=== PATIENT | male | born 1990 | race Caucasian/White ===

== ENCOUNTER 2018-06-07 13:28 | Emergency (ER) | payer OTHER, MEDICAID, SELFPAY ==
[2018-06-07 13:36] VITALS: BP 137/81; PULSE 66; RESP 18; TEMP 36.8; O2SAT 99
--- NOTE | 2018-06-07 13:45 | ED_ITS ---
HPI - Male Genitourinary <Shirin Denis PA-C - Last Filed: 06/07/18 21:35> General Chief complaint: Urogenital-Male Stated complaint: GROIN ISSUES Time Seen by Provider: 06/07/18 13:43 Source: patient Mode of arrival: ambulatory Limitations: no limitations History of Present Illness HPI Narrative: This healthy 28-year-old male complains of pain in both testicles radiating into the groin area, mostly on the right. He states he has had some intermittent discomfort maybe over the last year and noticed that the right will retract and he has to push it back down, however for the last couple of weeks he has had more pain and discomfort which wax and wane, will be present for a couple of days and then go away. He thinks the testicle could be a little bit swollen at times. He denies any fever or STD concerns. He denies any discharge or new urinary symptoms. He denies any nausea, vomiting, or bowel habit change. 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 he states that his s.o. bumped him in the groin accidentally last night and his puppy jumps on the area sometimes Related Data Previous Rx's Medication Instructions Recorded meloxicam [Mobic] 15 mg PO DAILY #30 tab 06/07/18 Allergies Allergy/AdvReac Type Severity Reaction Status Date / Time No Known Drug Allergies Allergy Verified 06/07/18 13:40 Review of Systems <Shirin Denis PA-C - Last Filed: 06/07/18 21:35> Review of Systems ROS Unobtainable: All systems reviewed & are unremarkable except as noted in HPI and below PFSH <Shirin Denis PA-C - Last Filed: 06/07/18 21:35> Medical History Healthy adult male (Chronic) Surgical History (Updated 06/07/18 @ 14:00 by Shirin Denis PA-C) S/P orchiopexy (Resolved) Comment: Daily smoker, occasional EtOH and occasional THC, no street drugs Exam <Shirin Denis PA-C - Last Filed: 06/07/18 21:35> Narrative Exam Narrative: GENERAL APPEARANCE: Patient sitting comfortably, in no distress. HEENT: PERRL, EOMI, no scleral icterus NECK: Supple LUNGS: Clear to auscultation bilaterally. HEART: Rate and rhythm regular, normal S1 and S2, no S3 or S4. ABDOMEN: Soft, nontender, nondistended, bowel sounds present x 4 quadrants, no masses palpable, no CVAT EXTREMITIES: No edema DERMATOLOGIC: No jaundice or exanthem NEUROLOGIC: Alert and oriented with normal speech and coordination : R. testicle is low riding compared to the left. Mildly tender, symmetric with the left. No palpable a normally. No palpable hernia. No palpable inguinal nodes Initial Vital Signs Initial Vital Signs: Vital Signs Temperature 98.3 F 06/07/18 13:36 Pulse Rate 66 06/07/18 13:36 Respiratory Rate 18 06/07/18 13:36 Blood Pressure 137/81 06/07/18 13:36 Pulse Oximetry 99 06/07/18 13:36 <DO Melissa Purcell Last Filed: 06/08/18 07:17> Initial Vital Signs Initial Vital Signs: Vital Signs Temperature 98.3 F 06/07/18 13:36 Pulse Rate 66 06/07/18 13:36 Respiratory Rate 18 06/07/18 13:36 Blood Pressure 137/81 06/07/18 13:36 Pulse Oximetry 99 06/07/18 13:36 Course <Shirin Denis PA-C - Last Filed: 06/07/18 21:35> Orders Ordered: ED Orders 06/07/18 13:54 US scrotum Stat 06/07/18 13:55 Urinalysis Sreen (Dip Only) Stat Urine Chlamydia Gonorrhea PCR Stat Vital Signs - 8 hr 06/07/18 13:36 06/07/18 14:43 06/07/18 15:00 Temperature 98.3 F Pulse Rate 66 67 87 Respiratory Rate 18 16 16 Blood Pressure 137/81 Blood Pressure [Left Arm] 131/60 122/61 Pulse Oximetry 99 100 100 06/07/18 16:17 Temperature Pulse Rate 81 Respiratory Rate 19 Blood Pressure 133/74 Blood Pressure [Left Arm] Pulse Oximetry 100 <DO Melissa Purcell Last Filed: 06/08/18 07:17> Orders Ordered: ED Orders 06/07/18 13:54 US scrotum Stat 06/07/18 13:55 Urinalysis Sreen (Dip Only) Stat Urine Chlamydia Gonorrhea PCR Stat Vital Signs - 8 hr 06/07/18 13:36 06/07/18 14:43 06/07/18 15:00 Temperature 98.3 F Pulse Rate 66 67 87 Respiratory Rate 18 16 16 Blood Pressure 137/81 Blood Pressure [Left Arm] 131/60 122/61 Pulse Oximetry 99 100 100 06/07/18 16:17 Temperature Pulse Rate 81 Respiratory Rate 19 Blood Pressure 133/74 Blood Pressure [Left Arm] Pulse Oximetry 100 MDM - Male Genitourinary <Shirin Denis PA-C - Last Filed: 06/07/18 21:35> Lab Data Lab Results 06/07/18 06/07/18 Range/Units 13:55 13:55 Urine Color Yellow Urine Appearance Clear Urine pH 7.5 (4.5-8.0) Ur Specific [place] 1.020 (1.000-1.035) Urine Protein Negative (Negative) Urine Glucose (UA) Negative (Negative) g/dL Urine Ketones Negative (NEGATIVE) Urine Occult Blood Negative (Negative) Urine Nitrate Negative (Negative) Urine Bilirubin Negative (NEGATIVE) Urine Urobilinogen 0.2 (0.2) E.U./dL Ur Leukocyte Esterase Negative (NEGATIVE) Ur Chlamydia DNA (PCR) Not detected N gonorrhoeae DNA (PCR) Not detected Imaging Data scrotum: Radiologist's impression: 27 Shirin Denis PA-C Find Patient Imaging José Antonio Pacheco 28 M 1990 ACTIVITY DATE EXAM STATUS AUTHOR 06/07/18 13:54 [place] [address] Ultrasound Report Signed Patient: José Antonio Pacheco CMR#: [id number] : 1990Acct:[id number] Age/Sex: 28 MDate of Service: 06/07/18 Loc: ED Accession Number: [id number] Procedure: US scrotum Ordering Provider: Shirin Denis P.A-C PROCEDURE: US SCROTUM INDICATIONS: RIGHT TESTICULAR PAIN TECHNIQUE: Real-time scanning was performed of the scrotum and testicles, with image d ocumentation. Color and pulse Doppler interrogation was performed of both testicles. COMPARISON: None. FINDINGS: Right: Testicle is normal in size at 4.1 x 1.9 x 2.8 cm, and homogenous in echotexture. Epididymis is normal in overall size and morphology. No hydrocele or varicoceles. Overlying scrotal skin is normal in thickness. Left: Testicle is normal in size at 3.1 x 1.8 x 2.6 cm, and homogeneous in echotexture. Epididymis is normal in overall size and morphology. No hydrocele or varicoceles. Overlying scrotal skin is normal in thickness. Doppler: Color and pulse Doppler demonstrate normal and symmetric arterial flow in both testicles. IMPRESSION: Unremarkable scrotal ultrasound. There is no evidence of testicular mass, testicular torsion, or epididymoorchitis. Dictated by: Denny Deleon M.D. on 06/07/2018 at 13:43 Approved by: Denny Deleon M.D. on 06/07/2018 at 13:45 <Juan J Jain DO - Last Filed: 06/08/18 07:17> Lab Data Lab Results 06/07/18 06/07/18 Range/Units 13:55 13:55 Urine Color Yellow Urine Appearance Clear Urine pH 7.5 (4.5-8.0) Ur Specific [place] 1.020 (1.000-1.035) Urine Protein Negative (Negative) Urine Glucose (UA) Negative (Negative) g/dL Urine Ketones Negative (NEGATIVE) Urine Occult Blood Negative (Negative) Urine Nitrate Negative (Negative) Urine Bilirubin Negative (NEGATIVE) Urine Urobilinogen 0.2 (0.2) E.U./dL Ur Leukocyte Esterase Negative (NEGATIVE) Ur Chlamydia DNA (PCR) Not detected N gonorrhoeae DNA (PCR) Not detected Discharge Plan Departure Patient Disposition: Home Clinical Impression: Scrotal pain Discharge Date/Time: 06/07/18 16:18 Interventions: ED Discharge Assessment Last Done: 06/07/18 16:17 Instructions: DI for Groin Strain Activity Restrictions/Additional Instructions: Please return if you have any acutely worsening symptoms. Otherwise, please try the once daily anti-inflammatory pain reliever I prescribed for you (sent to [facility] in [place]), and you can add Tylenol as needed. Try ice on the area and elevating the scrotal sac. If you can, please try to do light duty at work at least for the next week to see if this is helpful. Please call your insurance today and request a referral to a local urologist who is taking new patients on your insurance (they may need to help you see a PCP 1st if you need a referral from them). Prescriptions: New meloxicam [Mobic] 15 mg tablet 15 mg PO DAILY Qty: 30 RF: 0 Stand Alone Forms: Work Release Note <Juan J Jain DO - Last Filed: 06/08/18 07:17> Cosign ED Attending Subhash Attestation: I was available for consultation during this patient's emergency department encounter
--- NOTE | 2018-06-07 13:54 | DI.US.S_ITS ---
PROCEDURE: US SCROTUM INDICATIONS: RIGHT TESTICULAR PAIN TECHNIQUE: Real-time scanning was performed of the scrotum and testicles, with image documentation. Color and pulse Doppler interrogation was performed of both testicles. COMPARISON: None. FINDINGS: Right: Testicle is normal in size at 4.1 x 1.9 x 2.8 cm, and homogenous in echotexture. Epididymis is normal in overall size and morphology. No hydrocele or varicoceles. Overlying scrotal skin is normal in thickness. Left: Testicle is normal in size at 3.1 x 1.8 x 2.6 cm, and homogeneous in echotexture. Epididymis is normal in overall size and morphology. No hydrocele or varicoceles. Overlying scrotal skin is normal in thickness. Doppler: Color and pulse Doppler demonstrate normal and symmetric arterial flow in both testicles. IMPRESSION: Unremarkable scrotal ultrasound. There is no evidence of testicular mass, testicular torsion, or epididymoorchitis. Dictated by: Denny Deleon M.D. on 06/07/2018 at 13:43 Approved by: Denny Deleon M.D. on 06/07/2018 at 13:45
[2018-06-07 14:12] LABS: Appearance Urine UA CLEAR; Bilirubin Urine UA NEGATIVE (NEGATIVE); Color Urine UA YELLOW; Glucose Urine UA NEGATIVE (Negative); Ketones Urine UA NEGATIVE (NEGATIVE); Leukocyte Esterase Urine UA NEGATIVE (NEGATIVE); Nitrite Urine UA NEGATIVE (Negative); Occult Blood Urine UA NEGATIVE (Negative); Protein Urine UA NEGATIVE (Negative); Urobilinogen Urine UA 0.2 E.U./dL (0.2); pH Urine UA 7.5 (4.5-8.0)
[2018-06-07 14:43] VITALS: BP 131/60; PULSE 67; RESP 16; O2SAT 100
[2018-06-07 15:00] VITALS: BP 122/61; PULSE 87; RESP 16; O2SAT 100
[2018-06-07 15:38] LABS: Urine N gonorrhoeae NOT DETECTED
[2018-06-07 15:43] LABS: Urine Chlamydia NOT DETECTED
[2018-06-07 16:17] VITALS: BP 133/74; PULSE 81; RESP 19; O2SAT 100
== END 2018-06-07 16:18 | disposition home or self-care (01) ==
PROVIDERS: Emergency Provider Internal Medicine
DX: N50.82 Scrotal pain (principal)
CPT/HCPCS: 76870; 81003; 87491; 87591; 99282; 99283

== ENCOUNTER 2018-08-10 07:55 | Emergency (ER) | payer OTHER, MEDICAID, SELFPAY ==
[2018-08-10 08:04] VITALS: BP 159/80; PULSE 94; RESP 14; TEMP 36.6; O2SAT 96; BMI 23.0
--- NOTE | 2018-08-10 08:06 | ED.MALEGU ---
HPI - Male Genitourinary General Chief complaint: Urogenital-Male Stated complaint: scrotum and groin pain Time Seen by Provider: 08/10/18 07:56 Source: patient and family Mode of arrival: ambulatory Limitations: no limitations History of Present Illness HPI Narrative: 28M nonsmoker with history of surgery for undescended testicle which was surgically repaired about 10-15 years ago. He's been having episodes of scrotal pain off and on for many months. He denies any direct trauma. He denies abdominal pain, N/V/D. He's had no fever or chills. He is not sexually active and denies discharge, dysuria, frequency, or urgency. Related Data Previous Rx's Medication Instructions Recorded meloxicam [Mobic] 15 mg PO DAILY #30 tab 06/07/18 hydrocodone-acetaminophen 1 tab PO Q4-6H PRN #10 tab 08/10/18 Allergies Allergy/AdvReac Type Severity Reaction Status Date / Time No Known Drug Allergies Allergy Verified 08/10/18 08:03 Review of Systems Constitutional Denies chills, Denies fever(s), Denies lethargy and Denies weakness Eyes Denies change in vision, Denies eye discharge, Denies irritation and Denies loss of vision ENT Ears, Nose, Mouth, and Throat: Denies change in voice, Denies neck pain and Denies sore throat Cardiovascular Denies chest pain, Denies irregular heart rhythm, Denies lightheadedness, Denies palpitations, Denies dyspnea, Denies dyspnea on exertion and Denies orthopnea Respiratory Denies cough, Denies dyspnea, Denies dyspnea on exertion and Denies wheezing Gastrointestinal Gastrointestinal: Denies abdominal pain, Denies change in bowel habits, Denies diarrhea, Denies nausea and Denies vomiting Genitourinary Denies hematuria, Denies flank pain, Reports testicular pain, Denies urinary incontinence and Denies urinary urgency Musculoskeletal Denies neck pain Integumentary/Breasts Denies pruritus, Denies erythema, Denies rash and Denies wounds Neurologic Denies confusion, Denies loss of vision and Denies weakness Psychiatric Denies anxiety, Denies confusion, Denies depression, Denies homicidal ideation and Denies suicidal ideation Endocrine Denies palpitations Hematologic/Lymphatic Denies easy bruising Allergic/Immunologic Denies wheezing [facility] Medical History Healthy adult male (Chronic) Surgical History S/P orchiopexy (Resolved) Social History Smoking Status: Current every day smoker Social History Smoking Status: Current every day smoker Exam Narrative Exam Narrative: GENERAL: 28M, well appearing. HEAD: Atraumatic. Normocephalic. No temporal or scalp tenderness. EYES: Pupils equal round and reactive. Extraocular motions intact. No scleral icterus. No injection or drainage. ENT: Nose without bleeding, purulent drainage or septal hematoma. Throat without erythema, tonsillar hypertrophy or exudate. Uvula midline. Airway patent. NECK: Trachea midline. No JVD or lymphadenopathy. Supple, nontender, no meningeal signs. CARDIOVASCULAR: Regular rate and rhythm without murmurs, gallops, or rubs. RESPIRATORY: Clear to auscultation. Breath sounds equal bilaterally. No wheezes, rales, or rhonchi. GASTROINTESTINAL: Abdomen soft, non-tender, nondistended. No hepato-splenomegaly, or palpable masses. No guarding. : (examined while standing) no testicular mass, swelling, erythema, or edema. No discoloration or external evidence of abnormality. Very minimal pain on exam. No change with testicular elevation. EXTREMITIES: No clubbing, cyanosis, or edema. No joint tenderness, effusion, or edema noted. BACK: Nontender without deformity or crepitance. No flank tenderness. NEURO: AOx3. SKIN: No rash or erythema. Initial Vital Signs Initial Vital Signs: Vital Signs Temperature 97.8 F 08/10/18 08:04 Pulse Rate 94 H 08/10/18 08:04 Respiratory Rate 14 08/10/18 08:04 Blood Pressure 159/80 H 08/10/18 08:04 Pulse Oximetry 96 08/10/18 08:04 Course Orders Ordered: ED Orders 08/10/18 08:00 Urine Microscopic Stat 08/10/18 08:06 US scrotum Stat Vital Signs - 8 hr 08/10/18 08:04 Temperature 97.8 F Pulse Rate 94 H Respiratory Rate 14 Blood Pressure 159/80 H Pulse Oximetry 96 MDM - Male Genitourinary Lab Data Lab Results 08/10/18 Range/Units 08:00 Urine RBC 0-1/hpf (0-5/HPF) Urine WBC 0-1/hpf (0-5/HPF) Urine Bacteria Few (2-10) H (None) Ur Culture Indicated? Cult not indicated Urine Dip Bedside Urine Glucose Negative Bedside Urine Bilirubin - Negative Bedside Urine Ketone - Negative Urine Specific [place] 1.025 Bedside Urine Occult Blood - Negative Bedside Urine pH 6.0 Bedside Urine Protein +/- 15 Bedside Urine Urobilinogen +/- 1mg Bedside Urine Nitrite - Negative Bedside Urine Leukocytes - Negative Esterase Imaging Data Scrotal US: Radiologist's impression: [address] [address] Ultrasound Report Signed Patient: José Antonio Pacheco CMR#: [id number] : 1990Acct:[id number] Age/Sex: 28 / MDate of Service: 08/10/18 Loc: ED Accession Number: [id number] Procedure: US scrotum Ordering Provider: Abdullahi Sutherland D.O. PROCEDURE: US SCROTUM INDICATIONS: PAIN TECHNIQUE: Real-time scanning was performed of the scrotum and testicles, with image documentation. Color and pulse Doppler interrogation was performed of both testicles. COMPARISON: [facility], , US SCROTUM, 06/07/2018, 14:11. FINDINGS: Right: Testicle is normal in size at 4.2 x 2 x 3 cm, and homogenous in echotexture. Epididymis is normal in overall size and morphology. No hydrocele or varicoceles. Overlying scrotal skin is normal in thickness. Left: Testicle is normal in size at 3.5 x 1.8 x 3 cm, and homogeneous in echotexture. Epididymis is normal in overall size and morphology. No hydrocele or varicoceles. Overlying scrotal skin is normal in thickness. Doppler: Color and pulse Doppler demonstrate normal and symmetric arterial flow in both testicles. Additional, dedicated ultrasound scanning is performed of the left groin. No focal ultrasound abnormalities are seen within this region. IMPRESSION: Negative study, without scrotal or left groin abnormality seen. Dictated by: Az Almodovar M.D. on 08/10/2018 at 8:18 Approved by: Az Almodovar M.D. on 08/10/2018 at 8:20 Discharge Plan Departure Patient Disposition: Home Clinical Impression: Pain in testicle Discharge Date/Time: 08/10/18 08:48 Interventions: ED Discharge Assessment Last Done: 08/10/18 08:48 Instructions: DI for Testicular Pain Activity Restrictions/Additional Instructions: *You have been diagnosed with [ chronic testicular pain ] *What to do: *Take medications as directed *Follow up with [facility], call for an appointment. Let them know you were seen in the Emergency Department and we want you to be seen. *Return to ER if you should have any new, worsening or concerning symptoms, such as [worsening pain, fever, vomiting or other bothersome symptoms] Prescriptions: New hydrocodone-acetaminophen 5-325 mg tablet 1 tab PO Q4-6H PRN (Reason: pain) Qty: 10 RF: 0 No Action meloxicam [Mobic] 15 mg tablet 15 mg PO DAILY Qty: 30 RF: 0 Referrals: Lauro Cody MD [Non-Staff] -
--- NOTE | 2018-08-10 08:21 | ED_ITS ---
HPI - Male Genitourinary General Chief complaint: Urogenital-Male Stated complaint: scrotum and groin pain Time Seen by Provider: 08/10/18 07:56 Source: patient and family Mode of arrival: ambulatory Limitations: no limitations History of Present Illness HPI Narrative: 28M nonsmoker with history of surgery for undescended testicle which was surgically repaired about 10-15 years ago. He's been having episodes of scrotal pain off and on for many months. He denies any direct trauma. He denies abdominal pain, N/V/D. He's had no fever or chills. He is not sexually active and denies discharge, dysuria, frequency, or urgency. Related Data Previous Rx's Medication Instructions Recorded meloxicam [Mobic] 15 mg PO DAILY #30 tab 06/07/18 hydrocodone-acetaminophen 1 tab PO Q4-6H PRN #10 tab 08/10/18 Allergies Allergy/AdvReac Type Severity Reaction Status Date / Time No Known Drug Allergies Allergy Verified 08/10/18 08:03 Review of Systems Constitutional Denies chills, Denies fever(s), Denies lethargy and Denies weakness Eyes Denies change in vision, Denies eye discharge, Denies irritation and Denies loss of vision ENT Ears, Nose, Mouth, and Throat: Denies change in voice, Denies neck pain and Denies sore throat Cardiovascular Denies chest pain, Denies irregular heart rhythm, Denies lightheadedness, Denies palpitations, Denies dyspnea, Denies dyspnea on exertion and Denies orthopnea Respiratory Denies cough, Denies dyspnea, Denies dyspnea on exertion and Denies wheezing Gastrointestinal Gastrointestinal: Denies abdominal pain, Denies change in bowel habits, Denies diarrhea, Denies nausea and Denies vomiting Genitourinary Denies hematuria, Denies flank pain, Reports testicular pain, Denies urinary incontinence and Denies urinary urgency Musculoskeletal Denies neck pain Integumentary/Breasts Denies pruritus, Denies erythema, Denies rash and Denies wounds Neurologic Denies confusion, Denies loss of vision and Denies weakness Psychiatric Denies anxiety, Denies confusion, Denies depression, Denies homicidal ideation and Denies suicidal ideation Endocrine Denies palpitations Hematologic/Lymphatic Denies easy bruising Allergic/Immunologic Denies wheezing [facility] Medical History Healthy adult male (Chronic) Surgical History S/P orchiopexy (Resolved) Social History Smoking Status: Current every day smoker Social History Smoking Status: Current every day smoker Exam Narrative Exam Narrative: GENERAL: 28M, well appearing. HEAD: Atraumatic. Normocephalic. No temporal or scalp tenderness. EYES: Pupils equal round and reactive. Extraocular motions intact. No scleral i cterus. No injection or drainage. ENT: Nose without bleeding, purulent drainage or septal hematoma. Throat without erythema, tonsillar hypertrophy or exudate. Uvula midline. Airway patent. NECK: Trachea midline. No JVD or lymphadenopathy. Supple, nontender, no meningeal signs. CARDIOVASCULAR: Regular rate and rhythm without murmurs, gallops, or rubs. RESPIRATORY: Clear to auscultation. Breath sounds equal bilaterally. No wheezes, rales, or rhonchi. GASTROINTESTINAL: Abdomen soft, non-tender, nondistended. No hepato- splenomegaly, or palpable masses. No guarding. : (examined while standing) no testicular mass, swelling, erythema, or edema. No discoloration or external evidence of abnormality. Very minimal pain on exam. No change with testicular elevation. EXTREMITIES: No clubbing, cyanosis, or edema. No joint tenderness, effusion, or edema noted. BACK: Nontender without deformity or crepitance. No flank tenderness. NEURO: AOx3. SKIN: No rash or erythema. Initial Vital Signs Initial Vital Signs: Vital Signs Temperature 97.8 F 08/10/18 08:04 Pulse Rate 94 H 08/10/18 08:04 Respiratory Rate 14 08/10/18 08:04 Blood Pressure 159/80 H 08/10/18 08:04 Pulse Oximetry 96 08/10/18 08:04 Course Orders Ordered: ED Orders 08/10/18 08:00 Urine Microscopic Stat 08/10/18 08:06 US scrotum Stat Vital Signs - 8 hr 08/10/18 08:04 Temperature 97.8 F Pulse Rate 94 H Respiratory Rate 14 Blood Pressure 159/80 H Pulse Oximetry 96 MDM - Male Genitourinary Lab Data Lab Results 08/10/18 Range/Units 08:00 Urine RBC 0-1/hpf (0-5/HPF) Urine WBC 0-1/hpf (0-5/HPF) Urine Bacteria Few (2-10) H (None) Ur Culture Indicated? Cult not indicated Urine Dip Bedside Urine Glucose Negative Bedside Urine Bilirubin - Negative Bedside Urine Ketone - Negative Urine Specific [place] 1.025 Bedside Urine Occult Blood - Negative Bedside Urine pH 6.0 Bedside Urine Protein +/- 15 Bedside Urine Urobilinogen +/- 1mg Bedside Urine Nitrite - Negative Bedside Urine Leukocytes - Negative Esterase Imaging Data Scrotal US: Radiologist's impression: [address] [address] Ultrasound Report Signed Patient: José Antonio Pacheco CMR#: [id number] : 1990Acct:[id number] Age/Sex: 28 / MDate of Service: 08/10/18 Loc: ED Accession Number: [id number] Procedure: US scrotum Ordering Provider: Abdullahi Sutherland D.O. PROCEDURE: US SCROTUM INDICATIONS: PAIN TECHNIQUE: Real-time scanning was performed of the scrotum and testicles, with image documentation. Color and pulse Doppler interrogation was performed of both testicles. COMPARISON: [facility], , US SCROTUM, 06/07/2018, 14:11. FINDINGS: Right: Testicle is normal in size at 4.2 x 2 x 3 cm, and homogenous in echotexture. Epididymis is normal in overall size and morphology. No hydrocele or varicoceles. Overlying scrotal skin is normal in thickness. Left: Testicle is normal in size at 3.5 x 1.8 x 3 cm, and homogeneous in echotexture. Epididymis is normal in overall size and morphology. No hydrocele or varicoceles. Overlying scrotal skin is normal in thickness. Doppler: Color and pulse Doppler demonstrate normal and symmetric arterial flow in both testicles. Additional, dedicated ultrasound scanning is performed of the left groin. No focal ultrasound abnormalities are seen within this region. IMPRESSION: Negative study, without scrotal or left groin abnormality seen. Dictated by: Az Almodovar M.D. on 08/10/2018 at 8:18 Approved by: Az Almodovar M.D. on 08/10/2018 at 8:20 Discharge Plan Departure Patient Disposition: Home Clinical Impression: Pain in testicle Discharge Date/Time: 08/10/18 08:48 Interventions: ED Discharge Assessment Last Done: 08/10/18 08:48 Instructions: DI for Testicular Pain Activity Restrictions/Additional Instructions: *You have been diagnosed with [ chronic testicular pain ] *What to do: *Take medications as directed *Follow up with [facility], call for an appointment. Let them know you were seen in the Emergency Department and we want you to be seen. *Return to ER if you should have any new, worsening or concerning symptoms, such as [worsening pain, fever, vomiting or other bothersome symptoms] Prescriptions: New hydrocodone-acetaminophen 5-325 mg tablet 1 tab PO Q4-6H PRN (Reason: pain) Qty: 10 RF: 0 No Action meloxicam [Mobic] 15 mg tablet 15 mg PO DAILY Qty: 30 RF: 0 Referrals: Lauro Cody MD [Non-Staff] -
[2018-08-10 08:30] LABS: Bacteria Urine Few (2-10); Culture Indicated Urine Cult Not Indicated; RBC Urine 0-1/HPF (0-5/HPF); WBC Urine 0-1/HPF (0-5/HPF)
== END 2018-08-10 08:48 | disposition home or self-care (01) ==
PROVIDERS: Emergency Provider Emergency Medicine
DX: N50.819 Testicular pain, unspecified (principal)
CPT/HCPCS: 76870; 81003; 81015; 99282; 99283